=== PATIENT | female | born 1935 | race Caucasian/White ===

== ENCOUNTER 2018-07-22 13:00 | Inpatient (IN) | payer MEDICARE, OTHER, SELFPAY ==
[2018-07-22 13:01] VITALS: BP 217/95; PULSE 68; RESP 16; TEMP 36.8; O2SAT 96; BMI 50.1
--- NOTE | 2018-07-22 13:24 | CT_ITS ---
STUDY: CT CERVICAL SPINE WITHOUT CONTRAST REASON FOR EXAM: Female, 82 years old. Fall. RADIATION DOSAGE (If Supplied By Facility): CTDIvol = ( 28.54 ) mGy, DLP = ( 604.00 ) mGycm TECHNIQUE: High resolution transaxial imaging was performed without contrast material. Sagittal and coronal images were reconstructed. Individualized dose optimization techniques were used for this CT. COMPARISON: None FINDINGS: Normal craniovertebral junction. Normal anterior atlantoaxial articulation. Normal odontoid process. Normal cervical lordosis. Normal vertebral bodies and posterior osseous elements. C2-3: Normal endplates. Normal disc height and morphology. Normal central canal and intervertebral neuroforamina. Mild facet hypertrophy. C3-4: Normal endplates. Normal disc height and morphology. Normal central canal. Severe left foraminal stenosis due to uncinate and marked facet hypertrophy. C4-5: Normal endplates. Normal disc height and morphology. Normal central canal. Moderate to severe foraminal stenosis, greater on the left, due to uncinate and marked facet hypertrophy. C5-6: Normal endplates. Disc space narrowing. Mild, noncompressive spondylotic bar. Moderate bilateral foraminal stenosis due to uncinate and marked facet hypertrophy. C6-7: Normal endplates. Disc space narrowing. Normal central canal. Moderate foraminal stenosis due to uncinate and facet hypertrophy. C7-T1: Normal endplates. Normal disc height and morphology. Normal central canal and intervertebral neuroforamina. Normal visualized soft tissue structures. CT/Spine Cervical without Contras IMPRESSION: 1. No evidence of trauma. 2. Moderate degenerative changes of the cervical spine. Electronically Signed: Perla Kilpatrick MD at 16:21 EST Tel , Service support ,
--- NOTE | 2018-07-22 13:24 | EKG12_ITS ---
Test Reason : FALL Blood Pressure : / mmHG Vent. Rate : 065 BPM Atrial Rate : 065 BPM P-R Int : 206 ms QRS Dur : 106 ms QT Int : 436 ms P-R-T Axes : 055 027 009 degrees QTc Int : 453 ms Normal sinus rhythm with sinus arrhythmia Normal ECG Confirmed by NIECY BERRY, JETHRO ([id number]), production editor YUMI COVINGTON ([id number]) on 07/26/2018 1:31:20 PM Referred By: LEELA Confirmed By:JETHRO PEMBERTON MD
--- NOTE | 2018-07-22 13:24 | CT_ITS ---
STUDY: CT BRAIN WITHOUT CONTRAST REASON FOR EXAM: Female, 82 years old. Status post fall. RADIATION DOSAGE (If Supplied By Facility): CTDIvol = ( 44.99 ) mGy, DLP = ( 829.85 ) mGycm TECHNIQUE: Transaxial CT imaging of the brain was performed without administration of intravenous contrast material. Individualized dose optimization techniques were used for this CT. COMPARISON: None. FINDINGS: Normal soft tissue structures. Normal calvarium. Normal size ventricles and extra-axial spaces for the patient's age. Normal white matter tracts of the cerebral hemispheres. Normal basal ganglia and thalami. Normal brainstem. Normal cerebellum. There is no intracranial hemorrhage. There are no findings of an acute ischemic infarction. There are calcifications of the cavernous internal carotid arteries. Normal visualized paranasal sinuses. CT/Brain/Head without Contrast IMPRESSION: No acute intracranial process Electronically Signed: Gopi Gunn MD at 15:49 EST Tel , Service support ,
--- NOTE | 2018-07-22 13:28 | ED.DCSUM_ITS ---
- ER Visit Summary Date of Service: 07/22/18 Chief Complaint: Fall History of Present Illness: The patient is a 82 F presenting after fall. Patient states she lost her balance and fell around 3 AM. She laid on the floor until 7 AM. She was able to call EMS at that time. She states she was trying to switch walkers because only one of her walkers fits into the bathroom. She lost her balance and fell. She did not hit her head or lose consciousness. She complains of right hip and right knee pain. She was unable to bear weight today. Daughter states she was hallucinating this morning similar to when she had a UTI in the past. She is not on anticoagulants. Physical Examination: Vitals are stable. Patient is afebrile. Alert no acute distress. HEENT exam is unremarkable. Neck is supple. Lungs are clear and equal bilaterally. Heart is regular rate and rhythm. Abdomen is soft nontender nondistended. Extremities right hip and knee tender to palpation with active full range of motion Skin is warm and dry. No focal neurologic deficit. Remainder of exam is unremarkable. Emergency Department Course and Treatment: Patient was given morphine, Zofran IV. EKG is sinus rate of 65. CBC shows a white count 12.3. Chemistries normal except for BUN 23. CPK was ordered due to her lying on the floor for 4 hours and was 652. Urinalysis shows 0-5 white blood cells, 0-5 red blood cells, positive nitrite. Urine culture was sent. Chest x-ray shows no acute process. X-ray right knee and right hip show no fracture. CT head and neck show no acute process. Discussed with the hospitalist for admission. Disposition: Admission Impression: Debility, fall, right hip and knee pain This note was generated with [employer] dictation software. It may contain incorrect words, spelling, and punctuation that were not noted in review of the chart prior to signing ED Disposition - Plan for ED Patient: Referrals: Janki Goodman MD [Primary Care Provider] -
[2018-07-22 14:02] LABS: Absolute Lymphocyte Count 1.81 X10^3/ul (0.83-4.51); Absolute Neutrophil Count 9.3 X10^3/uL (2.0-7.7); Basophil# 0.04 X10^3/uL; Basophil% 0.3 % (0-1); Eosinophil# 0.03 X10^3/uL; Eosinophils% 0.2 % (0-5); Hematocrit 40.6 % (37-47); Hemoglobin 13.6 g/dl (12.0-15.0); Lymphocyte # 1.81 X10^3/ul (4.0); Lymphocyte % 14.7 % (19-41); Mean Corp Hgb Conc 33.5 g/gl (32-36); Mean Corpuscular Hgb 33.6 pg (27.0-32.0); Mean Corpuscular Volume 100.2 fL (81-99); Mean Platelet Vol. 9.2 fl (6.2-12.0); Monocyte# 1.06 X10^3/uL; Monocyte% 8.6 % (0-10); Neutrophil # 9.31 X10^3/uL (2.7-7.7); Neutrophil % 75.8 % (47-70); Platelet Count 339 K/mm3 (150-450); RBC Distribution Width CV 13.4 % (11.6-14.6); RBC Distribution Width SD 48.7 fl (35.1-43.9); Red Blood Count 4.05 M/mm3 (4.2-5.4); White Blood Count 12.3 K/mm3 (4.4-11.0)
[2018-07-22 14:03] LABS: POSITIVE COUNT NO; POSITIVE DIFFERENTIAL NO; POSITIVE MORPHOLOGY NO
[2018-07-22 14:17] LABS: CPK Total, Creatine Kinase 652 U/L (26-192)
[2018-07-22] MEDS: Ondansetron 4 MG/2 ML Vial IV (14:17)
[2018-07-22] MEDS: Morphine 4 MG/ML Syringe IV (14:17)
[2018-07-22 14:29] LABS: Anion Gap 12 (5-15); BUN 23 mg/dL (7-18); BUN/Creat Ratio 29.6 RATIO (10-20); Calcium,Total 9.5 mg/dL (8.5-10.1); Chloride 109 mmol/L (98-107); Creatinine, Serum 0.78 mg/dL (0.55-1.02); EST Glomerular Filtration Rate 76 mL/min (>60); Est Glom Filt Rate - Afr Amer 91 mL/min (>60); Glucose 93 mg/dL (74-106); Sodium Level 143 mmol/L (136-145)
[2018-07-22 14:31] LABS: Mucous, Urine 0 SEEN /hpf (<or=2+); Squamous Epithelial Cells - UA 0 SEEN /hpf (5-10)
[2018-07-22 14:32] LABS: Color, Urine Yellow (Yellow); Glucose, Dipstick Normal (Normal); Ketone-Dipstick 15 mg/dl (Negative); Leukocyte Esterase-Dipstick 25 /ul (Negative); Nitrite-Dipstick Positive (Negative); Occult Blood-Urine 10 /ul (Negative); Protein-Dipstick Negative (Negative); Urine Bilirubin Dipstick Negative (Negative); Urine Clarity Clear (Clear); Urine Urobilinogen Normal (Normal)
[2018-07-22 14:38] LABS: Bacteria 2+ /hpf (None Seen); Red Blood Cells-Urine 0-5 SEEN /hpf (0-5); White Blood Cells 0-5 SEEN /hpf (0-5)
--- NOTE | 2018-07-22 15:00 | RAD_ITS ---
STUDY: X-RAY CHEST REASON FOR EXAM: Female, 82 years old. Pain status post fall. TECHNIQUE: Portable chest. COMPARISON: None. FINDINGS: The lungs are clear and expanded. There is no demonstrated pleural abnormality. Normal size heart. Normal mediastinum and eun. Normal visualized pulmonary arteries. Normal visualized aortic arch and descending thoracic aorta. There is a mild S-shaped scoliosis of the thoracic spine. Degenerative changes of the shoulders are noted bilaterally. Density projected over the right hemidiaphragm may represent artifact or possibly pleural calcification. RAD/Chest 1 View (Portable) IMPRESSION: No acute process. Electronically Signed: Perla Kilpatrick MD at 16:58 EST Tel , Service support ,
--- NOTE | 2018-07-22 15:00 | RAD_ITS ---
STUDY: X-RAY - RIGHT KNEE REASON FOR EXAM: Female, 82 years old. Pain status post fall. TECHNIQUE: 2 view(s) of the knee. COMPARISON: None. FINDINGS: Limited study. Superimposition on AP view. No true lateral view. There is marked bone demineralization. There is a posttraumatic deformity of the fibular neck. Suspected posttraumatic deformity of the patella. There is severe osteoarthrosis of the patellofemoral joint with marked joint space narrowing and mild spondylosis. No demonstrated acute fracture. There is atherosclerotic vascular calcification. Soft tissues are otherwise unremarkable. RAD/Knee 1 or 2 Views IMPRESSION: No acute findings. Old healed trauma. Severe osteoarthrosis of the patellofemoral joint. Electronically Signed: Perla Kilpatrick MD at 17:04 EST Tel , Service support ,
--- NOTE | 2018-07-22 15:00 | RAD_ITS ---
STUDY: X-RAY - RIGHT HIP REASON FOR EXAM: Female, 82 years old. Pain status post fall. TECHNIQUE: 3 views of the hip. COMPARISON: None. FINDINGS: There is no fracture or dislocation. There is severe osteoarthrosis of the right hip, with marked joint space narrowing, sclerosis, and subchondral cyst formation. There is spurring of the femoral head and acetabulum. There is mild enthesopathic spurring of the left greater trochanter. The left hip is otherwise unremarkable. Marked degenerative changes of the lower lumbar spine are noted. Soft tissues are unremarkable. RAD/HIP, UNI W/ Pelvis 2-3 Views IMPRESSION: 1. No evidence of trauma. 2. Severe osteoarthrosis of the right hip. 3. Additional degenerative changes are noted above. Electronically Signed: Perla Kilpatrick MD at 17:01 EST Tel , Service support ,
[2018-07-22 15:18] VITALS: BP 128/75; PULSE 64; RESP 12; TEMP 36.7; O2SAT 98
--- NOTE | 2018-07-22 15:36 | ED.RN ---
PT REPORTS EPIGASTRIC ABDOMINAL PAIN. PT REPORTS A BURNING PAIN. DR. SWENSON INFORMED. WILL CONTINUE TO MONITOR.
--- NOTE | 2018-07-22 16:52 | HP.PCM_ITS ---
Problem List (1) Hypertension Status: Chronic (2) Hyperlipemia Status: Chronic (3) Depression Status: Chronic (4) Morbid obesity with BMI of 50.0-59.9, adult Status: Chronic History of Present Illness Date of Admission: 07/22/18 Chief Complaint: Fall, debility. The patient is a 82 year old F who presents emergency room due to fall. Patient states she lost her balance and fell onto her right side earlier this morning. She reports she was unable to get herself up. She laid on the floor for 3 hours before she was able to reach a phone and call for help. She denies loss of consciousness. She is now having difficulty walking due to pain of the right leg. Patient and daughter at bedside report patient has been hallucinating recently. They also report patient has had difficulty with forgetfulness and intermittent hallucination which has been ongoing. Daughter states they saw patient's primary care physician in the fall and reported that she has been forgetful, they were told she probably has dementia. Patient lives alone. Both daughter and patient are concerned for patient further living by herself. Due to patient's forgetfulness, she does not always take medications correctly. She has a past medical history of hypertension, hyperlipidemia, depression, morbid obesity. Past Medical History Past Medical History (Chronic Problems): Chronic Problems Hypertension (Chronic) Hyperlipemia (Chronic) Depression (Chronic) Morbid obesity with BMI of 50.0-59.9, adult (Chronic) Allergies No Known Allergies Allergy (Verified 07/22/18 13:04) Home Medications: Ambulatory Orders Medication Instructions Recorded Amlodipine [Norvasc] 5 mg PO DAILY 07/22/18 Atenolol [Tenormin (beta John)] 25 mg PO BID 07/22/18 Atorvastatin Calcium [Lipitor] 20 mg PO DAILY 07/22/18 Cholecalciferol (Vitamin D3) 2,000 unit PO DAILY 07/22/18 [Vitamin D3] Quinapril HCl 40 mg PO DAILY 07/22/18 Sertraline HCl 50 mg PO DAILY 07/22/18 buPROPion XL [Wellbutrin Xl] 300 mg PO DAILY 07/22/18 Surgical History: cholecystectomy, - - Cataract surgery, Psychiatric History: Depression [employer] History: No pertinent [employer] history Lives: Alone Smoking Status: Never smoker Alcohol: None Drugs: None - *Family History Maternal History Items: - - Lymphoma, TIA Paternal History Items: Diabetes Review of Systems Constitutional: Denies: Chills, Fever, Weight Change HEENT: Denies: Head Aches, Sinus Congestion, Sinus Drainage Cardiovascular: Reports: Edema - Lower extremities, chronic. Denies: Chest Pain, Palpitations Respiratory: Denies: Cough, Shortness of breath at rest, Sputum production Gastrointestinal: Reports: Abdominal Pain - Intermittent. Denies: Nausea, Vomiting Genitourinary: Denies: Dysuria, Hematuria, Retention Musculoskeletal: Reports: - - Chronic joint pain including shoulders and hips. Skin: Denies: Rash, Wounds Neurological: Denies: Numbness, Tingling, Focal weakness Psychiatric: Reports: Depression Hematologic/ Lymphatic: Denies: Easy Bruising, Easy Bleeding VTE Information - Inpt Only VTE Present on Admission: No VTE Mechan Device Prophylaxis: None VTE Pharm Prophylaxis ordered?: Yes - Physical Exam General: Alert, Oriented x3, Cooperative, No apparent distress HEENT: Atraumatic, PERRLA, EOMI, Normocephalic Neck: Supple, No JVD, Negative Carotid Bruits Lungs: Clear to auscultation, Normal air movement Cardiovascular: Regular rate, Regular Rhythm, Normal S1, Normal S2, No murmurs Abdomen: Bowel Sounds Present, Soft, Non Tender, Non-Distended, Obese Extremities: No clubbing, No cyanosis, Capillary Refill Less than 3 Seconds, Edema - BLLE Skin: No rashes, No breakdown Musculoskeletal: No Tenderness to Palpation of Joints or Extremities Neurological: Cranial nerves II-XII grossly intact, Neuro grossly intact Vital Signs Temp Pulse Resp BP Pulse Ox 98.1 F 64 12 128/75 H 98 07/22/18 15:18 07/22/18 15:18 07/22/18 15:18 07/22/18 15:18 07/22/18 15:18 Oxygen Delivery Method Room Air Weight: 274 lb Body Mass Index (BMI) 50.1 Laboratory Tests Past 24 Hrs 07/22/18 07/22/18 07/22/18 13:55 13:55 13:55 WBC 12.3 H RBC 4.05 L Hgb 13.6 Hct 40.6 MCV 100.2 H MCH 33.6 H MCHC 33.5 RDW 13.4 RDW Differential 48.7 H Plt Count 339 MPV 9.2 Immature Gran % (Auto) 0.400 Neut % (Auto) 75.8 H Lymph % (Auto) 14.7 L Robeson % (Auto) 8.6 Eos % (Auto) 0.2 Baso % (Auto) 0.3 Absolute Neuts (auto) 9.3 H Absolute Lymphs (auto) 1.81 Total Counted Not Reportable Sodium 143 Potassium 4.0 Chloride 109 H Carbon Dioxide 22.0 Anion Gap 12 BUN 23 H Creatinine 0.78 Estim Creat Clear Calc 34.30 Est GFR (MDRD) Af Amer 91 Est GFR (MDRD) Non-Af 76 BUN/Creatinine Ratio 29.6 H Glucose 93 Calcium 9.5 Total Creatine Kinase 652 H Urine Color Urine Clarity Urine pH Ur Specific [place] Urine Protein Urine Glucose (UA) Urine Ketones Urine Occult Blood Urine Nitrite Urine Bilirubin Urine Urobilinogen Ur Leukocyte Esterase Urine RBC Urine WBC Ur Squamous Epith Cells Urine Bacteria Urine Mucus 07/22/18 14:20 WBC RBC Hgb Hct MCV MCH MCHC RDW RDW Differential Plt Count MPV Immature Gran % (Auto) Neut % (Auto) Lymph % (Auto) Robeson % (Auto) Eos % (Auto) Baso % (Auto) Absolute Neuts (auto) Absolute Lymphs (auto) Total Counted Sodium Potassium Chloride Carbon Dioxide Anion Gap BUN Creatinine Estim Creat Clear Calc Est GFR (MDRD) Af Amer Est GFR (MDRD) Non-Af BUN/Creatinine Ratio Glucose Calcium Total Creatine Kinase Urine Color Yellow Urine Clarity Clear Urine pH 7.0 Ur Specific [place] 1.010 Urine Protein Negative Urine Glucose (UA) Normal Urine Ketones 15 H Urine Occult Blood 10 H Urine Nitrite Positive H Urine Bilirubin Negative Urine Urobilinogen Normal Ur Leukocyte Esterase 25 H Urine RBC 0-5 SEEN Urine WBC 0-5 SEEN Ur Squamous Epith Cells 0 SEEN Urine Bacteria 2+ Urine Mucus 0 SEEN Assessment/Plan 1. Debility with mechanical fall, prior to admission-brain CT negative. Cervical spine CT showed no evidence of trauma. Moderate degenerative changes of the cervical spine. Right knee x-ray, right hip and pelvis x-ray completed in ER, negative for acute process. PT/OT. Fall precautions. Anticipate need for SNF. PRN pain regimen. 2. Mild rhabdomyolysis-secondary to #1. Patient reports she laid on the floor for approximately 3 hours before able to call for help. Gentle IV fluids. Repeat CPK. 3. Hypertensive urgency-suspect secondary to pain as well as daughter reports patient had not been taking her blood pressure medication for the past 3 days. Resume home amlodipine, atenolol, quinapril regimen. PRN hydralazine for systolic greater than 160. 4. Acute cystitis-UA positive for leukocyte, nitrite, 2+ bacteria. Send urine for culture. IV rocephin. Follow cultures. 5. Hyperlipidemia-continue statin. 6. Depression-continue sertraline, Wellbutrin. 7. Cognitive impairment, intermittent hallucinations-recommend outpatient follow-up with geriatrics for evaluation for dementia. 8. Morbid obesity-encouraged diet lifestyle modifications. DVT prophylaxis-Lovenox subcu. This patient was seen by MAYKEL Holliday under the supervision of Dr. Panda.
[2018-07-22 17:21] VITALS: BP 160/56; PULSE 72; RESP 19; O2SAT 96
[2018-07-22 17:54] VITALS: BMI 50.1
[2018-07-22 18:12] VITALS: BMI 50.1
[2018-07-22 18:23] VITALS: BP 145/55; PULSE 82; RESP 18; TEMP 36.7; O2SAT 95
[2018-07-22] MEDS: Atenolol 25 MG Tablet PO (20:39)
[2018-07-22] MEDS: Atorvastatin Calcium 20 MG Tablet PO (20:39)
[2018-07-22] MEDS: Acetaminophen 325 MG Tablet 650 MG PO (20:40)
[2018-07-22] MEDS: Cephalexin 500 MG Capsule PO (20:40)
[2018-07-22 20:51] VITALS: BP 130/44; PULSE 69; RESP 16; TEMP 36.7; O2SAT 97
[2018-07-23] MEDS: 0.9% Normal Saline 1,000 ML 150 ML IV ×2 (00:50→07:42)
[2018-07-23 02:50] VITALS: BP 133/57; PULSE 64; RESP 16; TEMP 36.8; O2SAT 94
[2018-07-23] MEDS: Cephalexin 500 MG Capsule PO ×3 (05:40→21:32)
[2018-07-23 07:00] LABS: Absolute Lymphocyte Count 2.04 X10^3/ul (0.83-4.51); Basophil# 0.04 X10^3/uL; Basophil% 0.5 % (0-1); Eosinophil# 0.11 X10^3/uL; Eosinophils% 1.4 % (0-5); Hematocrit 36.4 % (37-47); Hemoglobin 12.1 g/dl (12.0-15.0); Lymphocyte # 2.04 X10^3/ul (4.0); Lymphocyte % 25.3 % (19-41); Mean Corp Hgb Conc 33.2 g/gl (32-36); Mean Corpuscular Hgb 34.2 pg (27.0-32.0); Mean Corpuscular Volume 102.8 fL (81-99); Mean Platelet Vol. 9.4 fl (6.2-12.0); Monocyte% 11.2 % (0-10); Neutrophil # 4.97 X10^3/uL (2.7-7.7); Neutrophil % 61.5 % (47-70); Platelet Count 313 K/mm3 (150-450); RBC Distribution Width CV 13.4 % (11.6-14.6); RBC Distribution Width SD 49.2 fl (35.1-43.9); Red Blood Count 3.54 M/mm3 (4.2-5.4); White Blood Count 8.1 K/mm3 (4.4-11.0)
[2018-07-23 07:01] LABS: POSITIVE COUNT NO; POSITIVE DIFFERENTIAL NO; POSITIVE MORPHOLOGY NO
--- NOTE | 2018-07-23 07:59 | PN_ITS ---
Vitals/I&O's: Vital Signs Temp Pulse Resp BP Pulse Ox 98.2 F 64 16 133/57 H 94 07/23/18 02:50 07/23/18 02:50 07/23/18 02:50 07/23/18 02:50 07/23/18 02:50 Oxygen Delivery Method Room Air Weight: 124.284 kg Body Mass Index (BMI) 50.1 Intake and Output for Last 24 Hours 07/21/18 07/22/18 07/23/18 23:59 23:59 23:59 Intake Total 1735 / 1735 Output Total 450 / 450 Balance 1285 / 1285 Laboratory Results 07/22/18 13:55: WBC 12.3 H, RBC 4.05 L, Hgb 13.6, Hct 40.6, MCV 100.2 H, MCH 33.6 H, MCHC 33.5, RDW 13.4, RDW Differential 48.7 H, Plt Count 339, MPV 9.2, Immature Gran % (Auto) 0.400, Neut % (Auto) 75.8 H, Lymph % (Auto) 14.7 L, Snyder % (Auto) 8.6, Eos % (Auto) 0.2, Baso % (Auto) 0.3, Absolute Neuts (auto) 9.3 H, Absolute Lymphs (auto) 1.81, Total Counted Not Reportable 07/22/18 13:55: Sodium 143, Potassium 4.0, Chloride 109 H, Carbon Dioxide 22.0, Anion Gap 12, BUN 23 H, Creatinine 0.78, Estim Creat Clear Calc 34.30, Est GFR (MDRD) Af Amer 91, Est GFR (MDRD) Non-Af 76, BUN/Creatinine Ratio 29.6 H, Glucose 93, Calcium 9.5 07/22/18 13:55: Total Creatine Kinase 652 H 07/22/18 14:20: Urine Color Yellow, Urine Clarity Clear, Urine pH 7.0, Ur Specific [place] 1.010, Urine Protein Negative, Urine Glucose (UA) Normal, Urine Ketones 15 H, Urine Occult Blood 10 H, Urine Nitrite Positive H, Urine Bilirubin Negative, Urine Urobilinogen Normal, Ur Leukocyte Esterase 25 H, Urine RBC 0-5 SEEN, Urine WBC 0-5 SEEN, Ur Squamous Epith Cells 0 SEEN, Urine Bacteria 2+, Urine Mucus 0 SEEN 07/23/18 06:28: WBC 8.1, RBC 3.54 L, Hgb 12.1, Hct 36.4 L, MCV 102.8 H, MCH 34.2 H, MCHC 33.2, RDW 13.4, RDW Differential 49.2 H, Plt Count 313, MPV 9.4, Immature Gran % (Auto) 0.100, Neut % (Auto) 61.5, Lymph % (Auto) 25.3, Snyder % (Auto) 11.2 H, Eos % (Auto) 1.4, Baso % (Auto) 0.5, Absolute Neuts (auto) 5.0, Absolute Lymphs (auto) 2.04, Total Counted Not Reportable Current Medications Acetaminophen (Tylenol) 650 mg PO Q6H PRN PRN PRN Reason: Mild Pain (1-3)/Temp > 100.7 F Last Admin: 07/22/18 20:40 Dose: 650 mg Amlodipine Besylate (Norvasc) 5 mg PO DAILY [facility] Atenolol (Tenormin (Beta John)) 25 mg PO BID [facility] Last Admin: 07/22/18 20:39 Dose: 25 mg Atorvastatin Calcium (Lipitor) 20 mg PO DAILY@2200 [facility] Last Admin: 07/22/18 20:39 Dose: 20 mg Bupropion HCl (Wellbutrin Xl) 300 mg PO DAILY [facility] Cephalexin (Keflex) 500 mg PO Q8 [facility] Last Admin: 07/23/18 05:40 Dose: 500 mg [facility] ([facility]it[facility] Last Admin: 07/23/18 07:43 Dose: 2,000 unit Enoxaparin Sodium (Lovenox) 40 mg SC DAILY@1000 [facility] Sodium Chloride () 1,000 mls @ 150 mls/hr IV .[id number] [facility] Stop: 07/23/18 13:49 Last Admin: 07/23/18 07:42 Dose: 150 mls/hr Lisinopril (Zestril) 40 mg PO DAILY [facility] Nystatin (Mycostatin Powder) 1 applic TOPICAL BID [facility]; Protocol Sertraline HCl (Zoloft) 50 mg PO DAILY [facility] Sodium Chloride () 5 - 15 ml IV UD PRN PRN Reason: SALINE FLUSH Medical Necessity - Tobacco Use Smoking Status: Never smoker
[2018-07-23 08:00] VITALS: PULSE 70
[2018-07-23] MEDS: Enoxaparin 40 MG/0.4 ML Syringe SC (08:24)
[2018-07-23] MEDS: Nystatin Powder 15gm Bottle 1 APPLIC TOPICAL ×2 (08:26→21:33)
[2018-07-23] MEDS: amLODIPine 5 MG Tablet PO (08:27)
[2018-07-23] MEDS: Atenolol 25 MG Tablet PO ×2 (08:27→21:33)
[2018-07-23] MEDS: Sertraline 50 MG Tablet PO (08:28)
[2018-07-23] MEDS: buPROPion (XL) 300 MG TABLET.XL PO (08:28)
[2018-07-23] MEDS: Lisinopril 40 MG Tablet PO (08:28)
[2018-07-23 08:47] VITALS: BP 131/53; PULSE 70; RESP 18; TEMP 37; O2SAT 97
--- NOTE | 2018-07-23 09:12 | PCM.PN.HOSP ---
Subjective: Patient is an 82-year-old lady who was brought to the emergency department following a fall and episodic confusion. An assessment of acute cystitis with significant physical debility made admitted to regular nursing floor for further management. She was also found to have acute rhabdomyolysis on Objective: GENERAL: cooperative HEENT: Atraumatic; moist oral mucosa EYES; Anicteric, Normal Conjunctiva NECK; supple, normal thyroid, no distended JVD. RESPIRATORY: Diminished to auscultation bilaterally, CARDIOVASCULAR: Regular S1 S2, no audible murmurs GI: soft, non-tender, normoactive bowel sounds, : No Renal angle tenderness; EXTREMITIES: No edema, no clubbing, no cyanosis. MUSCULOSKELETAL: No Joint Tenderness; no muscle waisting NEURO: Awake; no lateralizing signs. SKIN: No Rash PSYCH; Normal affect Vitals/I&O's: Vital Signs Temp Pulse Resp BP Pulse Ox 98.6 F 70 18 131/53 H 97 07/23/18 08:47 07/23/18 08:47 07/23/18 08:47 07/23/18 08:47 07/23/18 08:47 Oxygen Delivery Method Room Air Weight: 124.284 kg Body Mass Index (BMI) 50.1 Intake and Output for Last 24 Hours 07/21/18 07/22/18 07/23/18 23:59 23:59 23:59 Intake Total 1735 / 1735 Output Total 450 / 450 Balance 1285 / 1285 Laboratory Results 07/22/18 13:55: WBC 12.3 H, RBC 4.05 L, Hgb 13.6, Hct 40.6, MCV 100.2 H, MCH 33.6 H, MCHC 33.5, RDW 13.4, RDW Differential 48.7 H, Plt Count 339, MPV 9.2, Immature Gran % (Auto) 0.400, Neut % (Auto) 75.8 H, Lymph % (Auto) 14.7 L, [place] % (Auto) 8.6, Eos % (Auto) 0.2, Baso % (Auto) 0.3, Absolute Neuts (auto) 9.3 H, Absolute Lymphs (auto) 1.81, Total Counted Not Reportable 07/22/18 13:55: Sodium 143, Potassium 4.0, Chloride 109 H, Carbon Dioxide 22.0, Anion Gap 12, BUN 23 H, Creatinine 0.78, Estim Creat Clear Calc 34.30, Est GFR (MDRD) Af Amer 91, Est GFR (MDRD) Non-Af 76, BUN/Creatinine Ratio 29.6 H, Glucose 93, Calcium 9.5 07/22/18 13:55: Total Creatine Kinase 652 H 07/22/18 14:20: Urine Color Yellow, Urine Clarity Clear, Urine pH 7.0, Ur Specific [place] 1.010, Urine Protein Negative, Urine Glucose (UA) Normal, Urine Ketones 15 H, Urine Occult Blood 10 H, Urine Nitrite Positive H, Urine Bilirubin Negative, Urine Urobilinogen Normal, Ur Leukocyte Esterase 25 H, Urine RBC 0-5 SEEN, Urine WBC 0-5 SEEN, Ur Squamous Epith Cells 0 SEEN, Urine Bacteria 2+, Urine Mucus 0 SEEN 07/23/18 06:28: WBC 8.1, RBC 3.54 L, Hgb 12.1, Hct 36.4 L, MCV 102.8 H, MCH 34.2 H, MCHC 33.2, RDW 13.4, RDW Differential 49.2 H, Plt Count 313, MPV 9.4, Immature Gran % (Auto) 0.100, Neut % (Auto) 61.5, Lymph % (Auto) 25.3, [place] % (Auto) 11.2 H, Eos % (Auto) 1.4, Baso % (Auto) 0.5, Absolute Neuts (auto) 5.0, Absolute Lymphs (auto) 2.04, Total Counted Not Reportable Current Medications Acetaminophen (Tylenol) 650 mg PO Q6H PRN PRN PRN Reason: Mild Pain (1-3)/Temp > 100.7 F Last Admin: 07/22/18 20:40 Dose: 650 mg Amlodipine Besylate (Norvasc) 5 mg PO DAILY [facility] Last Admin: 07/23/18 08:27 Dose: 5 mg Atenolol (Tenormin (Beta John)) 25 mg PO BID [facility] Last Admin: 07/23/18 08:27 Dose: 25 mg Atorvastatin Calcium (Lipitor) 20 mg PO DAILY@2200 [facility] Last Admin: 07/22/18 20:39 Dose: 20 mg Bupropion HCl (Wellbutrin Xl) 300 mg PO DAILY [facility] Last Admin: 07/23/18 08:28 Dose: 300 mg Cephalexin (Keflex) 500 mg PO Q8 [facility] Last Admin: 07/23/18 05:40 Dose: 500 mg Cholecalciferol (Vitamin D) 2,000 unit PO DAILYCM [facility] Last Admin: 07/23/18 07:43 Dose: 2,000 unit Enoxaparin Sodium (Lovenox) 40 mg SC DAILY@1000 [facility] Last Admin: 07/23/18 08:24 Dose: 40 mg Sodium Chloride () 1,000 mls @ 150 mls/hr IV .Q6H40M [facility] Stop: 07/23/18 13:49 Last Admin: 07/23/18 07:42 Dose: 150 mls/hr Lisinopril (Zestril) 40 mg PO DAILY [facility] Last Admin: 07/23/18 08:28 Dose: 40 mg Nystatin (Mycostatin Powder) 1 applic TOPICAL BID [facility]; Protocol Last Admin: 07/23/18 08:26 Dose: 1 applicatio Sertraline HCl (Zoloft) 50 mg PO DAILY [facility] Last Admin: 07/23/18 08:28 Dose: 50 mg Sodium Chloride () 5 - 15 ml IV UD PRN PRN Reason: SALINE FLUSH Medical Necessity - Tobacco Use Smoking Status: Never smoker Assessment/Plan Patient is an 82-year-old lady who was brought to the emergency department following a fall and episodic confusion. An assessment of acute cystitis with significant physical debility made admitted to regular nursing floor for further management. She was also found to have acute rhabdomyolysis on 1. Acute encephalopathy from an infectious etiology cystitis 2. Acute cystitis cultures sent started on Rocephin 3. Physical debility with mechanical falls. Imaging studies obtained in the ED did not demonstrate any occult fracture. Admitted to regular nursing floor requested for PT OT eval and treatment and health social work professor to assist with discharge planning 4. Mild rhabdomyolysis following patient's for an prolonged immobility. On fluids with monitoring of CPK levels 5. Acute hypertensive crisis patient systolic blood pressure on admission was 217 home medications were resumed patient blood pressure has since stabilized 6. Dyslipidemia-patient is on statin therapy, continued at home dose 7. Morbid obesity with BMI of 50.1 8. Depression patient is on SSRI as well as Wellbutrin 9. Cognitive impairment with intermittent hallucinations 10. DVT prophylaxis SC Lovenox dose adjusted for BMI Disposition: possibly to custodial facility pending insurance approval Active Medications Acetaminophen (Tylenol) 650 mg PO Q6H PRN PRN PRN Reason: Mild Pain (1-3)/Temp > 100.7 F Last Admin: 07/22/18 20:40 Dose: 650 mg Amlodipine Besylate (Norvasc) 5 mg PO DAILY [facility] Last Admin: 07/23/18 08:27 Dose: 5 mg Atenolol (Tenormin (Beta John)) 25 mg PO BID [facility] Last Admin: 07/23/18 08:27 Dose: 25 mg Atorvastatin Calcium (Lipitor) 20 mg PO DAILY@2200 [facility] Last Admin: 07/22/18 20:39 Dose: 20 mg Bupropion HCl (Wellbutrin Xl) 300 mg PO DAILY [facility] Last Admin: 07/23/18 08:28 Dose: 300 mg Cephalexin (Keflex) 500 mg PO Q8 [facility] Last Admin: 07/23/18 05:40 Dose: 500 mg Cholecalciferol (Vitamin D) 2,000 unit PO DAILYCM [facility] Last Admin: 07/23/18 07:43 Dose: 2,000 unit Enoxaparin Sodium (Lovenox) 40 mg SC DAILY@1000 [facility] Last Admin: 07/23/18 08:24 Dose: 40 mg Sodium Chloride () 1,000 mls @ 150 mls/hr IV .Q6H40M [facility] Stop: 07/23/18 13:49 Last Admin: 07/23/18 07:42 Dose: 150 mls/hr Lisinopril (Zestril) 40 mg PO DAILY [facility] Last Admin: 07/23/18 08:28 Dose: 40 mg Nystatin (Mycostatin Powder) 1 applic TOPICAL BID [facility]; Protocol Last Admin: 07/23/18 08:26 Dose: 1 applicatio Sertraline HCl (Zoloft) 50 mg PO DAILY [facility] Last Admin: 07/23/18 08:28 Dose: 50 mg Sodium Chloride () 5 - 15 ml IV UD PRN PRN Reason: SALINE FLUSH Clinical Impression(s) from Imaging Studies Brain CT 07/22/18 13:24 IMPRESSION: No acute intracranial process Electronically Signed: Gopi Gunn MD at 15:49 EST Tel , Service support , Cervical Spine CT 07/22/18 13:24 IMPRESSION: 1. No evidence of trauma. 2. Moderate degenerative changes of the cervical spine. Electronically Signed: Perla Kilpatrick MD at 16:21 EST Tel , Service support , Chest X-Ray 07/22/18 15:00 IMPRESSION: No acute process. Electronically Signed: Perla Kilpatrick MD at 16:58 EST Tel , Service support , Hip/Pelvis X-Ray 07/22/18 15:00 IMPRESSION: 1. No evidence of trauma. 2. Severe osteoarthrosis of the right hip. 3. Additional degenerative changes are noted above. Electronically Signed: Perla Kilpatrick MD at 17:01 EST Tel , Service support , Knee X-Ray 07/22/18 15:00 IMPRESSION: No acute findings. Old healed trauma. Severe osteoarthrosis of the patellofemoral joint. Electronically Signed: Perla Kilpatrick MD at 17:04 EST Tel , Service support , Code Visit Inpatient E&M: 22972 Subs Hosp L3
--- NOTE | 2018-07-23 09:18 | PN_ITS ---
Subjective: Patient is an 82-year-old lady who was brought to the emergency department following a fall and episodic confusion. An assessment of acute cystitis with significant physical debility made admitted to regular nursing floor for further management. She was also found to have acute rhabdomyolysis on Objective: GENERAL: cooperative HEENT: Atraumatic; moist oral mucosa EYES; Anicteric, Normal Conjunctiva NECK; supple, normal thyroid, no distended JVD. RESPIRATORY: Diminished to auscultation bilaterally, CARDIOVASCULAR: Regular S1 S2, no audible murmurs GI: soft, non-tender, normoactive bowel sounds, : No Renal angle tenderness; EXTREMITIES: No edema, no clubbing, no cyanosis. MUSCULOSKELETAL: No Joint Tenderness; no muscle waisting NEURO: Awake; no lateralizing signs. SKIN: No Rash PSYCH; Normal affect Vitals/I&O's: Vital Signs Temp Pulse Resp BP Pulse Ox 98.6 F 70 18 131/53 H 97 07/23/18 08:47 07/23/18 08:47 07/23/18 08:47 07/23/18 08:47 07/23/18 08:47 Oxygen Delivery Method Room Air Weight: 124.284 kg Body Mass Index (BMI) 50.1 Intake and Output for Last 24 Hours 07/21/18 07/22/18 07/23/18 23:59 23:59 23:59 Intake Total 1735 / 1735 Output Total 450 / 450 Balance 1285 / 1285 Laboratory Results 07/22/18 13:55: WBC 12.3 H, RBC 4.05 L, Hgb 13.6, Hct 40.6, MCV 100.2 H, MCH 33.6 H, MCHC 33.5, RDW 13.4, RDW Differential 48.7 H, Plt Count 339, MPV 9.2, Immature Gran % (Auto) 0.400, Neut % (Auto) 75.8 H, Lymph % (Auto) 14.7 L, [place] % (Auto) 8.6, Eos % (Auto) 0.2, Baso % (Auto) 0.3, Absolute Neuts (auto) 9.3 H, Absolute Lymphs (auto) 1.81, Total Counted Not Reportable 07/22/18 13:55: Sodium 143, Potassium 4.0, Chloride 109 H, Carbon Dioxide 22.0, Anion Gap 12, BUN 23 H, Creatinine 0.78, Estim Creat Clear Calc 34.30, Est GFR (MDRD) Af Amer 91, Est GFR (MDRD) Non-Af 76, BUN/Creatinine Ratio 29.6 H, Glucose 93, Calcium 9.5 07/22/18 13:55: Total Creatine Kinase 652 H 07/22/18 14:20: Urine Color Yellow, Urine Clarity Clear, Urine pH 7.0, Ur Specific [place] 1.010, Urine Protein Negative, Urine Glucose (UA) Normal, Urine Ketones 15 H, Urine Occult Blood 10 H, Urine Nitrite Positive H, Urine Bilirubin Negative, Urine Urobilinogen Normal, Ur Leukocyte Esterase 25 H, Urine RBC 0-5 SEEN, Urine WBC 0-5 SEEN, Ur Squamous Epith Cells 0 SEEN, Urine Bacteria 2+, Urine Mucus 0 SEEN 07/23/18 06:28: WBC 8.1, RBC 3.54 L, Hgb 12.1, Hct 36.4 L, MCV 102.8 H, MCH 34.2 H, MCHC 33.2, RDW 13.4, RDW Differential 49.2 H, Plt Count 313, MPV 9.4, Immature Gran % (Auto) 0.100, Neut % (Auto) 61.5, Lymph % (Auto) 25.3, [place] % (Auto) 11.2 H, Eos % (Auto) 1.4, Baso % (Auto) 0.5, Absolute Neuts (auto) 5.0, Absolute Lymphs (auto) 2.04, Total Counted Not Reportable Current Medications Acetaminophen (Tylenol) 650 mg PO Q6H PRN PRN PRN Reason: Mild Pain (1-3)/Temp > 100.7 F Last Admin: 07/22/18 20:40 Dose: 650 mg Amlodipine Besylate (Norvasc) 5 mg PO DAILY [facility] Last Admin: 07/23/18 08:27 Dose: 5 mg Atenolol (Tenormin (Beta John)) 25 mg PO BID [facility] Last Admin: 07/23/18 08:27 Dose: 25 mg Atorvastatin Calcium (Lipitor) 20 mg PO DAILY@2200 [facility] Last Admin: 07/22/18 20:39 Dose: 20 mg Bupropion HCl (Wellbutrin Xl) 300 mg PO DAILY [facility] Last Admin: 07/23/18 08:28 Dose: 300 mg Cephalexin (Keflex) 500 mg PO Q8 [facility] Last Admin: 07/23/18 05:40 Dose: 500 mg Cholecalciferol (Vitamin D) 2,000 unit PO DAILYCM [facility] Last Admin: 07/23/18 07:43 Dose: 2,000 unit Enoxaparin Sodium (Lovenox) 40 mg SC DAILY@1000 [facility] Last Admin: 07/23/18 08:24 Dose: 40 mg Sodium Chloride () 1,000 mls @ 150 mls/hr IV .Q6H40M [facility] Stop: 07/23/18 13:49 Last Admin: 07/23/18 07:42 Dose: 150 mls/hr Lisinopril (Zestril) 40 mg PO DAILY [facility] Last Admin: 07/23/18 08:28 Dose: 40 mg Nystatin (Mycostatin Powder) 1 applic TOPICAL BID [facility]; Protocol Last Admin: 07/23/18 08:26 Dose: 1 applicatio Sertraline HCl (Zoloft) 50 mg PO DAILY [facility] Last Admin: 07/23/18 08:28 Dose: 50 mg Sodium Chloride () 5 - 15 ml IV UD PRN PRN Reason: SALINE FLUSH Medical Necessity - Tobacco Use Smoking Status: Never smoker Assessment/Plan Patient is an 82-year-old lady who was brought to the emergency department following a fall and episodic confusion. An assessment of acute cystitis with significant physical debility made admitted to regular nursing floor for further management. She was also found to have acute rhabdomyolysis on 1. Acute encephalopathy from an infectious etiology cystitis 2. Acute cystitis cultures sent started on Rocephin 3. Physical debility with mechanical falls. Imaging studies obtained in the ED did not demonstrate any occult fracture. Admitted to regular nursing floor requested for PT OT eval and treatment and social work supervisor to assist with discharge planning 4. Mild rhabdomyolysis following patient's for an prolonged immobility. On fluids with monitoring of CPK levels 5. Acute hypertensive crisis patient systolic blood pressure on admission was 217 home medications were resumed patient blood pressure has since stabilized 6. Dyslipidemia-patient is on statin therapy, continued at home dose 7. Morbid obesity with BMI of 50.1 8. Depression patient is on SSRI as well as Wellbutrin 9. Cognitive impairment with intermittent hallucinations 10. DVT prophylaxis SC Lovenox dose adjusted for BMI Disposition: possibly to shelter facility pending insurance approval Active Medications Acetaminophen (Tylenol) 650 mg PO Q6H PRN PRN PRN Reason: Mild Pain (1-3)/Temp > 100.7 F Last Admin: 07/22/18 20:40 Dose: 650 mg Amlodipine Besylate (Norvasc) 5 mg PO DAILY [facility] Last Admin: 07/23/18 08:27 Dose: 5 mg Atenolol (Tenormin (Beta John)) 25 mg PO BID [facility] Last Admin: 07/23/18 08:27 Dose: 25 mg Atorvastatin Calcium (Lipitor) 20 mg PO DAILY@2200 [facility] Last Admin: 07/22/18 20:39 Dose: 20 mg Bupropion HCl (Wellbutrin Xl) 300 mg PO DAILY [facility] Last Admin: 07/23/18 08:28 Dose: 300 mg Cephalexin (Keflex) 500 mg PO Q8 [facility] Last Admin: 07/23/18 05:40 Dose: 500 mg Cholecalciferol (Vitamin D) 2,000 unit PO DAILYCM [facility] Last Admin: 07/23/18 07:43 Dose: 2,000 unit Enoxaparin Sodium (Lovenox) 40 mg SC DAILY@1000 [facility] Last Admin: 07/23/18 08:24 Dose: 40 mg Sodium Chloride () 1,000 mls @ 150 mls/hr IV .Q6H40M [facility] Stop: 07/23/18 13:49 Last Admin: 07/23/18 07:42 Dose: 150 mls/hr Lisinopril (Zestril) 40 mg PO DAILY [facility] Last Admin: 07/23/18 08:28 Dose: 40 mg Nystatin (Mycostatin Powder) 1 applic TOPICAL BID [facility]; Protocol Last Admin: 07/23/18 08:26 Dose: 1 applicatio Sertraline HCl (Zoloft) 50 mg PO DAILY [facility] Last Admin: 07/23/18 08:28 Dose: 50 mg Sodium Chloride () 5 - 15 ml IV UD PRN PRN Reason: SALINE FLUSH Clinical Impression(s) from Imaging Studies Brain CT 07/22/18 13:24 IMPRESSION: No acute intracranial process Electronically Signed: Gopi Gunn MD at 15:49 EST Tel , Service support , Cervical Spine CT 07/22/18 13:24 IMPRESSION: 1. No evidence of trauma. 2. Moderate degenerative changes of the cervical spine. Electronically Signed: Perla Kilpatrick MD at 16:21 EST Tel , Service support , Chest X-Ray 07/22/18 15:00 IMPRESSION: No acute process. Electronically Signed: Perla Kilpatrick MD at 16:58 EST Tel , Service support , Hip/Pelvis X-Ray 07/22/18 15:00 IMPRESSION: 1. No evidence of trauma. 2. Severe osteoarthrosis of the right hip. 3. Additional degenerative changes are noted above. Electronically Signed: Perla Kilpatrick MD at 17:01 EST Tel , Service support , Knee X-Ray 07/22/18 15:00 IMPRESSION: No acute findings. Old healed trauma. Severe osteoarthrosis of the patellofemoral joint. Electronically Signed: Perla Kilpatrick MD at 17:04 EST Tel , Service support , Code Visit Inpatient E&M: 84943 Subs Hosp L3
[2018-07-23 14:22] VITALS: BP 138/45; PULSE 65; RESP 18; TEMP 36.6; O2SAT 98
[2018-07-23 21:30] VITALS: BP 116/70; PULSE 66; RESP 16; TEMP 36.8; O2SAT 94
[2018-07-23] MEDS: Atorvastatin Calcium 20 MG Tablet PO (21:32)
[2018-07-23] MEDS: Acetaminophen 325 MG Tablet 650 MG PO (22:17)
[2018-07-24] MEDS: Ketorolac 30 MG/ML Syringe IM (01:01)
[2018-07-24 02:00] VITALS: BP 139/63; PULSE 59; RESP 16; TEMP 36.7; O2SAT 92
[2018-07-24] MEDS: Cephalexin 500 MG Capsule PO ×3 (06:12→21:20)
[2018-07-24 08:55] VITALS: BP 148/67; PULSE 62; RESP 18; TEMP 36.7; O2SAT 96
[2018-07-24] MEDS: Sertraline 50 MG Tablet PO (08:57)
[2018-07-24] MEDS: amLODIPine 5 MG Tablet PO (08:57)
[2018-07-24] MEDS: Lisinopril 40 MG Tablet PO (08:57)
[2018-07-24] MEDS: Atenolol 25 MG Tablet PO ×2 (08:58→21:19)
[2018-07-24] MEDS: Enoxaparin 40 MG/0.4 ML Syringe SC (08:58)
[2018-07-24] MEDS: Nystatin Powder 15gm Bottle 1 APPLIC TOPICAL ×2 (08:58→21:20)
[2018-07-24] MEDS: buPROPion (XL) 300 MG TABLET.XL PO (08:58)
--- NOTE | 2018-07-24 09:30 | CASEMGMT ---
ANNA VERNON Face to Face with patient for initial transition planning/care coordination assessment. ANNA VERNON introduced self and role at [facility]. Patient sitting in chair, alert and oriented. Patient willing to participate in assessment and is able to answer all questions appropriately. Care providers, pharmacy, and demographics verified. Patient wishes to discharge to SNF for additional therapy. [facility]'s [facility]. Patient states she has no further needs or concerns at this time. MARILU Crow updated regarding request for SNF at discharge. PCP: Maxine Specialists: None [facility] Pres[facility] Benefit: Yes Living Will/HPOA: Yes, daughter Nasrin Pierre HPOA LNOK: Daughters Living Arrangements: Patient lives alone in 1 story home with ramp to enter the home. Patient states she is independent with self care. Daughters and granddaughters help with cleaning. Transportation: Daughter DME/HHC: Patient states she has a tub bench and walker at home. Patient denies use of oxygen, cpap, bipap, and nebulizer at home. No previous HHC or SNF Disposition Plan: SNF [facility], RN, CM
--- NOTE | 2018-07-24 11:51 | CASEMGMT ---
Social Work Note RN JANEEN Braxton updated this worker that pt is agreeable to [facility] at discharge. SW met with pt and pt's daughter Nasrin present in room. Pt gave this worker permission to speak to her guest. [facility] Nasrin states that she had called [facility] and spoke with Anahy in admissions who states she does have beds available. SW explained that this worker will have to send referral to [facility] and speak with Anahy still regarding referral. Pt and pt's daughter Nasrin states understanding. SW faxed referral to Anahy at [facility]. MARILU placed a call to Anahy at [facility]. MARILU informed Anahy of referral and that the projected discharge for pt is tomorrow. Anahy states she is able to accept pt tomorrow. 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
--- NOTE | 2018-07-24 13:40 | PN_ITS ---
<Candy Ceja - Last Filed: 07/24/18 13:40> Subjective: Patient seen and examined. Complains of hallucinations overnight and severe back pain. She reports she is currently comfortable and pain relieved with IV medication overnight. Denies further confusion/hallucinations. - Physical Exam General: Alert, Oriented x3, Cooperative, No apparent distress HEENT: Atraumatic, PERRLA, EOMI, Normocephalic Oral: Moist Mucosa Neck: Supple, No JVD, Negative Carotid Bruits Lungs: Clear to auscultation, Diminished Cardiovascular: Regular rate, Regular Rhythm, Normal S1, Normal S2, No murmurs Abdomen: Bowel Sounds Present, Soft, Non Tender, Non-Distended, Obese Extremities: No clubbing, No cyanosis, No edema, Capillary Refill Less than 3 Seconds Skin: No rashes, No breakdown Musculoskeletal: No Tenderness to Palpation of Joints or Extremities Neurological: Cranial nerves II-XII grossly intact, Neuro grossly intact Psych/Mental Status: Normal Affect, Appropriate Vital Signs Temp Pulse Resp BP Pulse Ox 98.1 F 62 18 148/67 H 96 07/24/18 08:55 07/24/18 08:55 07/24/18 08:55 07/24/18 08:55 07/24/18 08:55 Oxygen Delivery Method Room Air Weight: 273 lb 15.848 oz Body Mass Index (BMI) 50.1 Intake and Output for Last 24 Hours 07/22/18 07/23/18 07/24/18 23:59 23:59 23:59 Intake Total 1735 / 1735 600 / 600 Output Total 550 / 550 2049 / 2049 Balance 1185 / 1185 -1450 / -1450 Microbiology Past 72 Hours 07/22/18 14:20 Urine Culture - Final Urine, Catheterized Escherichia coli Medical Necessity - Tobacco Use Smoking Status: Never smoker Assessment/Plan 1. Debility with mechanical fall, prior to admission-brain CT negative. Cervical spine CT showed no evidence of trauma. Moderate degenerative changes of the cervical spine. Right knee x-ray, right hip and pelvis x-ray completed in ER, negative for acute process. PT/OT. Fall precautions. SNF pending pre- cert. 2. Mild rhabdomyolysis-secondary to #1. Patient reports she laid on the floor for approximately 3 hours before able to call for help. Gentle IV fluids. Repeat CPK. 3. Hypertensive urgency- Continue home amlodipine, atenolol, quinapril regimen. PRN hydralazine for systolic greater than 160. 4. Acute e.coli cystitis-continue Keflex 500 mg p.o. every 8 hours X5 days. 5. Hyperlipidemia-continue statin. 6. Depression-continue sertraline, Wellbutrin. 7. Cognitive impairment, intermittent hallucinations-recommend outpatient follow-up with geriatrics for evaluation for dementia. 8. Morbid obesity-encouraged diet lifestyle modifications. 9. Acute infectious encephalopathy secondary to acute UTI-improved. Continues to have chronic mental status changes. DVT prophylaxis-Lovenox subcu. Discharge planning: Plan for SNF 07/25/18 This patient was seen by MAYKEL Holliday under the supervision of Dr. Eric. <Donaldo Eric F - Last Filed: 07/24/18 16:23> - Physical Exam Vital Signs Temp Pulse Resp BP Pulse Ox 98.1 F 62 18 148/67 H 96 07/24/18 08:55 07/24/18 08:55 07/24/18 08:55 07/24/18 08:55 07/24/18 08:55 Oxygen Delivery Method Room Air Weight: 273 lb 15.848 oz Body Mass Index (BMI) 50.1 Intake and Output for Last 24 Hours 07/22/18 07/23/18 07/24/18 23:59 23:59 23:59 Intake Total 1735 / 1735 600 / 600 Output Total 550 / 550 0 / 2050 Balance 1185 / 1185 -1450 / -1450 Microbiology Past 72 Hours 07/22/18 14:20 Urine Culture - Final Urine, Catheterized Escherichia coli Laboratory Tests Past 24 Hrs 07/24/18 14:55 Total Creatine Kinase 248 H Code Visit Addendum: Dr. Eric I personally examined the patient and reviewed the chart. I agree with the above. 82-year-old female presenting after mechanical fall and confusion secondary to an E. coli UTI. She also had some rhabdomyolysis secondary to her fall. She was treated with IV fluids and she is improving on Keflex for her E. coli, however she is still fairly weak and has been working with PT and OT and will need [facility] for [facility]. Inpatient E&M: 63050 Subs Hosp L2
[2018-07-24 15:44] LABS: CPK Total, Creatine Kinase 248 U/L (26-192)
[2018-07-24 15:50] VITALS: BP 134/54; PULSE 67; RESP 16; TEMP 36.8; O2SAT 94
[2018-07-24 21:13] VITALS: BP 103/62; PULSE 69; RESP 18; TEMP 37.2; O2SAT 94
[2018-07-24] MEDS: Acetaminophen 325 MG Tablet 650 MG PO (21:20)
[2018-07-24] MEDS: Atorvastatin Calcium 20 MG Tablet PO (21:20)
[2018-07-25 03:12] VITALS: BP 128/60; PULSE 60; RESP 16; TEMP 36.9; O2SAT 96
[2018-07-25] MEDS: Acetaminophen 325 MG Tablet 650 MG PO ×2 (03:21→11:42)
--- NOTE | 2018-07-25 04:42 | NURSING ---
Pt did become tearful this morning, states she is tired of being in pain & that she doesn't want to go to the jail when she is discharged but that she feels she does not have anywhere else she can go. Emotional support provided.
[2018-07-25] MEDS: Cephalexin 500 MG Capsule PO ×2 (06:00→13:14)
[2018-07-25 08:30] VITALS: BP 155/59; PULSE 66; RESP 18; TEMP 36.8; O2SAT 97
[2018-07-25 08:34] VITALS: PULSE 60
[2018-07-25] MEDS: Atenolol 25 MG Tablet PO (08:43)
[2018-07-25] MEDS: Sertraline 50 MG Tablet PO (08:44)
[2018-07-25] MEDS: Enoxaparin 40 MG/0.4 ML Syringe SC (08:44)
[2018-07-25] MEDS: amLODIPine 5 MG Tablet PO (08:44)
[2018-07-25] MEDS: buPROPion (XL) 300 MG TABLET.XL PO (08:44)
[2018-07-25] MEDS: Lisinopril 40 MG Tablet PO (08:45)
--- NOTE | 2018-07-25 10:30 | RAD_ITS ---
PROCEDURE: Fluoroscopic guided Hip Injection DATE: July 25, 2018. INDICATION: Female, 82 years old. Chronic right hip pain. PHYSICIAN: Roni Carlson M.D. MEDICATIONS: 80 mg of Depo-Medrol. 2% Lidocaine administered subcutaneously for local anesthesia. ACCESS SITE: Right hip. NEEDLE: 22-gauge spinal needle. FLUOROSCOPY TIME (if supplied): (0:43) minutes/seconds FINDINGS: The risks, benefits, and alternatives to the procedure were explained to the patient. The specific risks of bleeding, infection, and neurovascular injury were detailed and accepted. Witnessed informed consent was obtained. A 22-gauge spinal needle was positioned under radiographic fluoroscopic localization. Approximately 2 cc of Isovue-300 instilled for localization purposes. Medication was then injected. The patient tolerated the procedure well without any immediate complications. The patient was placed supine with head elevated and returned to the floor in stable condition. RAD/Inj/Asp Ousmane Jt Should/Hip/Knee IMPRESSION: 1. Successful fluoroscopic guided hip injection. Electronically Signed: Roni Carlson MD at 12:48 EST , Service support ,
--- NOTE | 2018-07-25 10:59 | CASEMGMT ---
Social Work Note Physician is discharging pt today. MARILU placed a call to Anahy at [facility] and updated her on this. SW attempted to meet with pt to update on discharge today but pt currently off floor. SW to update pt once pt returns to floor. Plan: Discharge to [facility] today skilled Gloria Crow [employer], [employer]
[2018-07-25] MEDS: Nystatin Powder 15gm Bottle 1 APPLIC TOPICAL (11:25)
--- NOTE | 2018-07-25 11:30 | PCM.EXTCARCO ---
- Diet 07/22/18 17:47 Diet: Regular Diet Food consistency:: Regular Liquid Consistency:: Regular/Thin - Routine Orders/Code Status Enema Type: Fleetz Enema Frequency: Daily PRN Suppository Type: Dulcolax 10mg Suppository Frequency: Daily PRN O2 Liters per Minute: 2 O2 Frequency: PRN Keep PO Greater than or Equal to (%): 90 Code Status: Full Code - Wound(s) Left inner foot Wound Type: dry/cracked skin Right abd folds Wound Type: excoriation - Suggestions for Active Care Change Position every (hours): 2 Times a day to sit in chair: 3 - Therapies Physical Therapy: Eval and Treat Occupational Therapy: Eval and Treat - Problem/Diagnosis (1) Hypertension Status: Chronic Current Visit: No (2) Hyperlipemia Status: Chronic Current Visit: No (3) Depression Status: Chronic Current Visit: No (4) Morbid obesity with BMI of 50.0-59.9, adult Status: Chronic Current Visit: No (5) UTI (urinary tract infection) Status: Acute Comment: e.coli Current Visit: Yes (6) Debility Status: Chronic Current Visit: Yes - Allergies/Procedures Done in Hospital Allergies/Adverse Reactions: Allergies No Known Allergies Allergy (Verified 07/22/18 13:04) Procedures: - - Right hip injection - Type of Care/Length of Stay Estimated LOS: More Than 30 Days Type of Care Needed: Skilled Rehab Potential: Fair Prognosis: Fair - Additional Orders/Day of Discharge Additional Orders: Please NO male lieutenant/deputy/Nurses if possible. H&P will serve as current which was dated: 07/22/18 Day of Discharge: 07/25/18 - Dietary and Speech Recommendations Dietitian Recommendations/Changes: Rec diet change to Cardiac diet. - Follow Up Care Primary Care Physician: Janki Goodman MD [Primary Care Provider] - Please follow up with your Primary Care Physician in: 1 Week
--- NOTE | 2018-07-25 11:40 | PCM.DC.SUM ---
<Candy Ceja - Last Filed: 07/25/18 11:49> Discharge Date and Diagnosis Date of Admission: 07/22/18 Date of Discharge: 07/25/18 - Primary Discharge Diagnosis Active and Suspected Problems 1. Debility with mechanical fall, prior to admission 2. Mild rhabdomyolysis 3. Hypertensive urgency 4. Acute e.coli cystitis 5. Hyperlipidemia 6. Depression 7. Cognitive impairment, intermittent hallucinations 8. Morbid obesity 9. Acute infectious encephalopathy secondary to acute UTI - Secondary Discharge Diagnosis Chronic Problems Hypertension (Chronic) Hyperlipemia (Chronic) Depression (Chronic) Morbid obesity with BMI of 50.0-59.9, adult (Chronic) Debility (Chronic) Hospital Course and Treatment Imaging Results: Diagnostic Data Brain CT 07/22/18 13:24 IMPRESSION: No acute intracranial process Electronically Signed: Gopi Gunn MD at 15:49 EST Tel , Service support , Cervical Spine CT 07/22/18 13:24 IMPRESSION: 1. No evidence of trauma. 2. Moderate degenerative changes of the cervical spine. Electronically Signed: Perla Kilpatrick MD at 16:21 EST Tel , Service support , Chest X-Ray 07/22/18 15:00 IMPRESSION: No acute process. Electronically Signed: Perla Kilpatrick MD at 16:58 EST Tel , Service support , Hip/Pelvis X-Ray 07/22/18 15:00 IMPRESSION: 1. No evidence of trauma. 2. Severe osteoarthrosis of the right hip. 3. Additional degenerative changes are noted above. Electronically Signed: Perla Kilpatrick MD at 17:01 EST Tel , Service support , Knee X-Ray 07/22/18 15:00 IMPRESSION: No acute findings. Old healed trauma. Severe osteoarthrosis of the patellofemoral joint. Electronically Signed: Perla Kilpatrick MD at 17:04 EST Tel , Service support , Operations: None Procedures: - - Right hip injection Summary of Care Provided: The patient is a 82 year old F admitted 07/22/18 due to fall, debility. 1. Debility with mechanical fall, prior to admission-brain CT negative. Cervical spine CT showed no evidence of trauma. Moderate degenerative changes of the cervical spine. Right knee x-ray, right hip and pelvis x-ray completed in ER, negative for acute process. SNF at [place]. Continue PT/OT. Right hip injection performed 07/25/18 due to pain. 2. Mild rhabdomyolysis-secondary to #1. Patient reports she laid on the floor for approximately 3 hours before able to call for help. CPK improved. 3. Hypertensive urgency-resolved. Continue home amlodipine, atenolol, quinapril regimen. 4. Acute e.coli cystitis-continue Keflex 500 mg p.o. every 8 hours X5 days at discharge. 5. Hyperlipidemia-continue statin. 6. Depression-continue sertraline, Wellbutrin. 7. Cognitive impairment, intermittent hallucinations-recommend outpatient follow-up with geriatrics for evaluation for dementia. 8. Morbid obesity-encouraged diet lifestyle modifications. 9. Acute infectious encephalopathy secondary to acute UTI-improved. Continues to have chronic mental status changes. General: Alert, Oriented x3, Cooperative, No apparent distress HEENT: Atraumatic, PERRLA, EOMI, Normocephalic Oral: Moist Mucosa Neck: Supple, No JVD, Negative Carotid Bruits Lungs: Clear to auscultation, Diminished Cardiovascular: Regular rate, Regular Rhythm, Normal S1, Normal S2, No murmurs Abdomen: Bowel Sounds Present, Soft, Non Tender, Non-Distended, Obese Extremities: No clubbing, No cyanosis, No edema, Capillary Refill Less than 3 Seconds Skin: No rashes, No breakdown Musculoskeletal: No Tenderness to Palpation of Joints or Extremities Neurological: Cranial nerves II-XII grossly intact, Neuro grossly intact Psych/Mental Status: Normal Affect, Appropriate Patient seen and examined prior to discharge. Physical assessment as noted above. Patient is stable for discharge with follow up recommendations as noted above. This patient was seen by MAYKEL Holliday under the supervision of Dr. Eric. - Physical Exam Vital Signs Temp Pulse Resp BP Pulse Ox 98.3 F 60 18 155/59 H 97 07/25/18 08:30 07/25/18 08:34 07/25/18 08:30 07/25/18 08:30 07/25/18 08:30 Oxygen Delivery Method Room Air Weight: 273 lb 15.848 oz Body Mass Index (BMI) 50.1 Intake and Output for Last 24 Hours 07/23/18 07/24/18 07/25/18 23:59 23:59 23:59 Intake Total 1735 / 1735 1600 / 1600 320 / 320 Output Total 550 / 550 2450 / 2450 1850 / 1850 Balance 1185 / 1185 -850 / -850 -1530 / -1530 Microbiology Past 72 Hours 07/22/18 14:20 Urine Culture - Final Urine, Catheterized Escherichia coli Laboratory Tests Past 24 Hrs 07/24/18 14:55 Total Creatine Kinase 248 H Home Medications: Medications to take at Discharge Amlodipine [Norvasc] 5 mg PO DAILY 07/22/18 Atenolol [Tenormin (beta jerrod)] 25 mg PO BID 07/22/18 Atorvastatin Calcium [Lipitor] 20 mg PO DAILY 07/22/18 Cholecalciferol (Vitamin D3) [Vitamin D3] 2,000 unit PO DAILY 07/22/18 Quinapril HCl 40 mg PO DAILY 07/22/18 Sertraline HCl 50 mg PO DAILY 07/22/18 buPROPion XL [Wellbutrin Xl] 300 mg PO DAILY 07/22/18 Acetaminophen [Tylenol Tablet] 650 mg PO Q6H PRN PRN tablet 07/25/18 Cephalexin [Keflex] 500 mg PO Q8 5 Days capsule 07/25/18 Nystatin Powder [Mycostatin Powder] 1 applic TOPICAL BID bottle 07/25/18 Quetiapine Fumarate [Seroquel] 50 mg PO BID tablet 07/25/18 Primary Care Physician: Janki Goodman MD [Primary Care Provider] - Please follow up with your Primary Care Physician in: 1 Week Disposition: Retirement facility Minutes spent on discharge:: 35 Patient Condition:: Stable Medical Necessity - Tobacco Use Smoking Status: Never smoker Meaningful Use Info Meaningful Use Diagnoses (Choose all that apply): None applicable <Donaldo Eric F - Last Filed: 07/25/18 14:43> Discharge Date and Diagnosis - Secondary Discharge Diagnosis Chronic Problems Hypertension (Chronic) Hyperlipemia (Chronic) Depression (Chronic) Morbid obesity with BMI of 50.0-59.9, adult (Chronic) Debility (Chronic) Hospital Course and Treatment Imaging Results: 07/25/18 10:30 Inj/Asp Ousmane Jt Should/Hip/Knee [RAD] Routine Summary of Care Provided: The patient is a 82 year old F [] - Physical Exam Vital Signs Temp Pulse Resp BP Pulse Ox 98.9 F 65 18 150/56 H 96 07/25/18 13:18 07/25/18 13:18 07/25/18 13:18 07/25/18 13:18 07/25/18 13:18 Oxygen Delivery Method Room Air Weight: 273 lb 15.848 oz Body Mass Index (BMI) 50.1 Intake and Output for Last 24 Hours 07/23/18 07/24/18 07/25/18 23:59 23:59 23:59 Intake Total 1735 / 1735 1600 / 1600 320 / 320 Output Total 550 / 550 2450 / 2450 1850 / 1850 Balance 1185 / 1185 -850 / -850 -1530 / -1530 Microbiology Past 72 Hours 07/22/18 14:20 Urine Culture - Final Urine, Catheterized Escherichia coli Laboratory Tests Past 24 Hrs 07/24/18 14:55 Total Creatine Kinase 248 H Code Visit Addendum: Dr. Eric I personally examined the patient and reviewed the chart. I agree with the above. 82-year-old female presenting after mechanical fall and confusion secondary to an E. coli UTI. It was also felt that she might have some rhabdomyolysis secondary to her fall and was treated with IV fluids. She has been improving on Keflex however will need to be placed to a [facility] facility for further PT/OT. She will complete 5 days of Keflex at the SNF. Inpatient E&M: 79592 Disch Hosp
--- NOTE | 2018-07-25 11:49 | DS.PCM_ITS ---
<Candy Ceja - Last Filed: 07/25/18 11:49> Discharge Date and Diagnosis Date of Admission: 07/22/18 Date of Discharge: 07/25/18 - Primary Discharge Diagnosis Active and Suspected Problems 1. Debility with mechanical fall, prior to admission 2. Mild rhabdomyolysis 3. Hypertensive urgency 4. Acute e.coli cystitis 5. Hyperlipidemia 6. Depression 7. Cognitive impairment, intermittent hallucinations 8. Morbid obesity 9. Acute infectious encephalopathy secondary to acute UTI - Secondary Discharge Diagnosis Chronic Problems Hypertension (Chronic) Hyperlipemia (Chronic) Depression (Chronic) Morbid obesity with BMI of 50.0-59.9, adult (Chronic) Debility (Chronic) Hospital Course and Treatment Imaging Results: Diagnostic Data Brain CT 07/22/18 13:24 IMPRESSION: No acute intracranial process Electronically Signed: Gopi Gunn MD at 15:49 EST Tel , Service support , Cervical Spine CT 07/22/18 13:24 IMPRESSION: 1. No evidence of trauma. 2. Moderate degenerative changes of the cervical spine. Electronically Signed: Perla Kilpatrick MD at 16:21 EST Tel , Service support , Chest X-Ray 07/22/18 15:00 IMPRESSION: No acute process. Electronically Signed: Perla Kilpatrick MD at 16:58 EST Tel , Service support , Hip/Pelvis X-Ray 07/22/18 15:00 IMPRESSION: 1. No evidence of trauma. 2. Severe osteoarthrosis of the right hip. 3. Additional degenerative changes are noted above. Electronically Signed: Perla Kilpatrick MD at 17:01 EST Tel , Service support , Knee X-Ray 07/22/18 15:00 IMPRESSION: No acute findings. Old healed trauma. Severe osteoarthrosis of the patellofemoral joint. Electronically Signed: Perla Kilpatrick MD at 17:04 EST Tel , Service support , Operations: None Procedures: - - Right hip injection Summary of Care Provided: The patient is a 82 year old F admitted 07/22/18 due to fall, debility. 1. Debility with mechanical fall, prior to admission-brain CT negative. Cervical spine CT showed no evidence of trauma. Moderate degenerative changes of the cervical spine. Right knee x-ray, right hip and pelvis x-ray completed in ER, negative for acute process. SNF at [place]. Continue PT/OT. Right hip injection performed 07/25/18 due to pain. 2. Mild rhabdomyolysis-secondary to #1. Patient reports she laid on the floor for approximately 3 hours before able to call for help. CPK improved. 3. Hypertensive urgency-resolved. Continue home amlodipine, atenolol, quinapril regimen. 4. Acute e.coli cystitis-continue Keflex 500 mg p.o. every 8 hours X5 days at discharge. 5. Hyperlipidemia-continue statin. 6. Depression-continue sertraline, Wellbutrin. 7. Cognitive impairment, intermittent hallucinations-recommend outpatient follow-up with geriatrics for evaluation for dementia. 8. Morbid obesity-encouraged diet lifestyle modifications. 9. Acute infectious encephalopathy secondary to acute UTI-improved. Continues to have chronic mental status changes. General: Alert, Oriented x3, Cooperative, No apparent distress HEENT: Atraumatic, PERRLA, EOMI, Normocephalic Oral: Moist Mucosa Neck: Supple, No JVD, Negative Carotid Bruits Lungs: Clear to auscultation, Diminished Cardiovascular: Regular rate, Regular Rhythm, Normal S1, Normal S2, No murmurs Abdomen: Bowel Sounds Present, Soft, Non Tender, Non-Distended, Obese Extremities: No clubbing, No cyanosis, No edema, Capillary Refill Less than 3 Seconds Skin: No rashes, No breakdown Musculoskeletal: No Tenderness to Palpation of Joints or Extremities Neurological: Cranial nerves II-XII grossly intact, Neuro grossly intact Psych/Mental Status: Normal Affect, Appropriate Patient seen and examined prior to discharge. Physical assessment as noted above. Patient is stable for discharge with follow up recommendations as noted above. This patient was seen by MAYKEL Holliday under the supervision of Dr. Eric. - Physical Exam Vital Signs Temp Pulse Resp BP Pulse Ox 98.3 F 60 18 155/59 H 97 07/25/18 08:30 07/25/18 08:34 07/25/18 08:30 07/25/18 08:30 07/25/18 08:30 Oxygen Delivery Method Room Air Weight: 273 lb 15.848 oz Body Mass Index (BMI) 50.1 Intake and Output for Last 24 Hours 07/23/18 07/24/18 07/25/18 23:59 23:59 23:59 Intake Total 1735 / 1735 1600 / 1600 320 / 320 Output Total 550 / 550 2450 / 2450 1850 / 1850 Balance 1185 / 1185 -850 / -850 -1530 / -1530 Microbiology Past 72 Hours 07/22/18 14:20 Urine Culture - Final Urine, Catheterized Escherichia coli Laboratory Tests Past 24 Hrs 07/24/18 14:55 Total Creatine Kinase 248 H Home Medications: Medications to take at Discharge Amlodipine [Norvasc] 5 mg PO DAILY 07/22/18 Atenolol [Tenormin (beta jerrod)] 25 mg PO BID 07/22/18 Atorvastatin Calcium [Lipitor] 20 mg PO DAILY 07/22/18 Cholecalciferol (Vitamin D3) [Vitamin D3] 2,000 unit PO DAILY 07/22/18 Quinapril HCl 40 mg PO DAILY 07/22/18 Sertraline HCl 50 mg PO DAILY 07/22/18 buPROPion XL [Wellbutrin Xl] 300 mg PO DAILY 07/22/18 Acetaminophen [Tylenol Tablet] 650 mg PO Q6H PRN PRN tablet 07/25/18 Cephalexin [Keflex] 500 mg PO Q8 5 Days capsule 07/25/18 Nystatin Powder [Mycostatin Powder] 1 applic TOPICAL BID bottle 07/25/18 Quetiapine Fumarate [Seroquel] 50 mg PO BID tablet 07/25/18 Primary Care Physician: Janki Goodman MD [Primary Care Provider] - Please follow up with your Primary Care Physician in: 1 Week Disposition: Care Home facility Minutes spent on discharge:: 35 Patient Condition:: Stable Medical Necessity - Tobacco Use Smoking Status: Never smoker Meaningful Use Info Meaningful Use Diagnoses (Choose all that apply): None applicable <Donaldo Eric F - Last Filed: 07/25/18 14:43> Discharge Date and Diagnosis - Secondary Discharge Diagnosis Chronic Problems Hypertension (Chronic) Hyperlipemia (Chronic) Depression (Chronic) Morbid obesity with BMI of 50.0-59.9, adult (Chronic) Debility (Chronic) Hospital Course and Treatment Imaging Results: 07/25/18 10:30 Inj/Asp Ousmane Jt Should/Hip/Knee [RAD] Routine Summary of Care Provided: The patient is a 82 year old F [] - Physical Exam Vital Signs Temp Pulse Resp BP Pulse Ox 98.9 F 65 18 150/56 H 96 07/25/18 13:18 07/25/18 13:18 07/25/18 13:18 07/25/18 13:18 07/25/18 13:18 Oxygen Delivery Method Room Air Weight: 273 lb 15.848 oz Body Mass Index (BMI) 50.1 Intake and Output for Last 24 Hours 07/23/18 07/24/18 07/25/18 23:59 23:59 23:59 Intake Total 1735 / 1735 1600 / 1600 320 / 320 Output Total 550 / 550 2450 / 2450 1850 / 1850 Balance 1185 / 1185 -850 / -850 -1530 / -1530 Microbiology Past 72 Hours 07/22/18 14:20 Urine Culture - Final Urine, Catheterized Escherichia coli Laboratory Tests Past 24 Hrs 07/24/18 14:55 Total Creatine Kinase 248 H Code Visit Addendum: Dr. Eric I personally examined the patient and reviewed the chart. I agree with the above. 82-year-old female presenting after mechanical fall and confusion secondary to an E. coli UTI. It was also felt that she might have some rhabdomyolysis secondary to her fall and was treated with IV fluids. She has been improving on Keflex however will need to be placed to a [facility] facility for further PT/OT. She will complete 5 days of Keflex at the SNF. Inpatient E&M: [id number] Disch Hosp
--- NOTE | 2018-07-25 12:00 | CASEMGMT ---
Social Work Note Pt is discharging today. MARILU faxed completed discharge paperwork to Anahy at [facility] including transfer to extended care facility, signed medication list and any scripts. Originals in SNF folder and copy on pt's chart. MARILU completed [facility] in [facility]. Originals in SNF folder and copy on pt's chart. MARILU met with pt to confirm discharge for today. Pt still agreeable to go to [facility] today. Pt denied any concerns with returning home eventually from [facility]. Pt's daughter Nasrin present in room. MARILU explained that transportation can be arranged for pt but it is likely pt would be transported via wheelchair van and pt's insurance doesn't cover wheelchair van so there would be a bill. Nasrin states that she will transport pt and that her will be around 12:30pm to assist with transporting pt to [facility]. RN updated. MARILU placed a call to Anahy at [facility] and updated her that pt is being discharged today and pt's family will be transporting pt. Anahy states understanding. Plan: Pt to discharge to [facility] skilled today with family transporting Gloria Crow [employer] SECRETARY, [employer]
[2018-07-25 13:18] VITALS: BP 150/56; PULSE 65; RESP 18; TEMP 37.2; O2SAT 96
--- NOTE | 2018-07-25 13:37 | NURSING ---
Report in called to Aleksandr the receiving nurse at [facility] in [place].
== END 2018-07-25 13:30 | disposition skilled nursing facility (03) | DRG 565 ==
LOC: ED 17:18 → MS3 17:23
PROVIDERS: Nurse Practitioner Family; Admitting Provider Internal Medicine; Emergency Provider Emergency Medicine; Family Provider Internal Medicine; PCP Internal Medicine; Visit Provider Family Medicine
DX: T79.6XXA Traumatic ischemia of muscle, initial encounter (principal); N30.00 Acute cystitis without hematuria; Z68.43 Body mass index [BMI] 50.0-59.9, adult; R44.3 Hallucinations, unspecified; G93.49 Other encephalopathy; I16.0 Hypertensive urgency; E78.5 Hyperlipidemia, unspecified; F32.9 Major depressive disorder, single episode, unspecified; E66.01 Morbid (severe) obesity due to excess calories; W18.30XA Fall on same level, unspecified, initial encounter; Y92.019 Unspecified place in single-family (private) house as the place of occurrence of the external cause; M25.551 Pain in right hip; M25.561 Pain in right knee; R53.81 Other malaise; B96.20 Unspecified Escherichia coli [E. coli] as the cause of diseases classified elsewhere; I10 Essential (primary) hypertension; R41.89 Other symptoms and signs involving cognitive functions and awareness
CPT/HCPCS: 20610; 36415; 70450; 71045; 72125; 73502; 73560; 77002; 80048; 81001; 82550; 85025; 87077; 87086; 87088; 87186; 93005; 97162; 97166; 97530; 99285; J7030; P9612; Q9967; A4216; J2405

== ENCOUNTER → 2019-06-12 09:33 | Outpatient (CLI) | payer MEDICARE, OTHER, SELFPAY ==
--- NOTE | 2019-06-12 09:41 | RAD_ITS ---
PROCEDURE: FLUOROSCOPIC GUIDED HIP INJECTION CLINICAL INDICATION: Pain. PHYSICIAN: Dr. Alexander King M.D. MEDICATIONS: 40 mg of Depomedrol, 2 cc 1% lidocaine administered subcutaneously for local anesthesia. ACCESS SITE: Right hip. NEEDLE: 22-gauge spinal needle. FLUOROSCOPY TIME (if supplied): (0:41) minutes/seconds FINDINGS: The risks, benefits, and alternatives to the procedure were explained to the patient. The specific risks of bleeding, infection, and neurovascular injury were detailed and accepted. Witnessed informed consent was obtained. The spinal needle was positioned under fluoroscopic localization into the right hip joint. Approximately 0.3 cc of [id number]-300 instilled for localization purposes confirming the location of the needle tip. Medication was then injected successfully. The patient tolerated the procedure well without any immediate complications. The patient was placed supine with head elevated and returned to the custodial in stable condition. RAD/Inj/Asp Ousmane Jt Should/Hip/Knee IMPRESSION: 1. Successful fluoroscopic guided right hip injection with no complication. Electronically Signed: Alexander King MD at 12:44 EST Tel [phone], Service support ,
== END ==
PROVIDERS: Family Provider Internal Medicine; PCP Internal Medicine; Referring Provider Orthopaedic Surgery; Visit Provider Orthopaedic Surgery
DX: M16.11 Unilateral primary osteoarthritis, right hip (principal)
CPT/HCPCS: 20610; 77002; Q9965; J0702